=== PATIENT | female | born 1955 | race Caucasian/White ===

== ENCOUNTER → 2017-02-25 | Outpatient (CLI) | payer OTHER | END | disposition home or self-care (01) | LOC: CFH 08:00 | PROVIDERS: ATTEND Obstetrics & Gynecology Gynecology | DX: Z12.31 Encounter for screening mammogram for malignant neoplasm of breast (principal) | CPT/HCPCS: G0202 ==

== ENCOUNTER → 2017-03-21 | Outpatient (CLI) | payer OTHER ==
[~2017-03-21] MED LIST: OMNIPAQUE 350 MG/ML, 100ML BOTTLE ONE; PITA2TAB2 PO
== END | disposition home or self-care (01) ==
LOC: CFH 09:09
PROVIDERS: ATTEND Specialist
DX: N94.89 Other specified conditions associated with female genital organs and menstrual cycle (principal); K75.3 Granulomatous hepatitis, not elsewhere classified; M47.896 Other spondylosis, lumbar region
CPT/HCPCS: 74177; 82565; Q9967

== ENCOUNTER → 2017-03-21 | Outpatient (CLI) | payer OTHER ==
[~2017-03-21] MED LIST changes: -OMNIPAQUE 350 MG/ML, 100ML BOTTLE ONE
[2017-03-21 14:50] LABS: BLOOD UREA NITROGEN 14 mg/dL (7-18)
[2017-03-21 14:53] LABS: ASPARTATE AMINO TRANSFERASE 20 U/L (15-37)
== END | disposition home or self-care (01) ==
LOC: STAR 13:37
PROVIDERS: ATTEND Specialist
DX: Z01.818 Encounter for other preprocedural examination (principal); R79.1 Abnormal coagulation profile
CPT/HCPCS: 36415; 71020; 80053; 85025; 85610; 85730; 86304; 93005

== ENCOUNTER 2017-04-04 08:48 | Day surgery (SDC) | payer OTHER ==
[~2017-04-04] VITALS: Ht 172.7 cm; Wt 63.6 kg
[~2017-04-04 08:48] MED LIST changes: +BUPIVACAINE/PF 0.25% ONE; +EPINEPHRINE 1 MG/ML, 1ML ONE
[2017-04-04] MEDS ORDERED: LACTATED RINGERS 1,000 ML IV SCH (09:20)
[2017-04-04 09:22] VITALS: BP 163/93
[2017-04-04] MEDS ORDERED: NEOSTIGMINE 1 MG/ML, 10ML ONE ×2 (10:40)
[2017-04-04] MEDS ORDERED: PROPOFOL 10 MG/ML, 20ML ONE (10:40)
[2017-04-04] MEDS ORDERED: GLYCOPYRROLATE 0.2MG/1ML ONE (10:40)
[2017-04-04] MEDS ORDERED: ROCURONIUM 10 MG/ML ONE (10:40)
[2017-04-04] MEDS ORDERED: CEFOTETAN 2 GM ONE (10:40)
[2017-04-04] MEDS ORDERED: ONDANSETRON 2MG/ML, 2ML ONE (10:40)
[2017-04-04] MEDS ORDERED: KETOROLAC 30 MG/1 ML ONE ×2 (10:40→16:52)
[2017-04-04] MEDS ORDERED: FENTANYL PF 250 MCG/5ML ONE (13:35)
[2017-04-04] MEDS ORDERED: MIDAZOLAM 1 MG/ML, 2ML ONE (13:35)
[2017-04-04] MEDS ORDERED: ACETAMINOPHEN 325 MG TABLET PO PRN (15:00)
[2017-04-04] MEDS ORDERED: MEPERIDINE/PF 25MG/0.5ML IVPush PRN (15:00)
[2017-04-04] MEDS ORDERED: MIDAZOLAM 1 MG/ML, 2ML IV PRN (15:00)
[2017-04-04] MEDS ORDERED: HYDROmorphone 1 MG/ML, 1ML IV PRN (15:00)
[2017-04-04] MEDS ORDERED: EPHEDRINE 50 MG/ML, 1ML IVPush PRN (15:00)
[2017-04-04] MEDS ORDERED: HYDROcodone/APAP 7.5-325MG/15ML UDC PO PRN (15:00)
[2017-04-04] MEDS ORDERED: LABETALOL 5MG/ML, 20ML IV PRN (15:00)
[2017-04-04] MEDS ORDERED: ONDANSETRON 2MG/ML, 2ML IVPush PRN (15:00)
[2017-04-04] MEDS ORDERED: PROMETHAZINE 25 MG/ML, 1ML IV PRN (15:00)
[2017-04-04] MEDS ORDERED: hydrALAzine 20 MG/ML, 1ML IV PRN (15:00)
[2017-04-04] MEDS ORDERED: OXYcodone 5 MG/5 ML ORAL.SOL UDC PO PRN (15:00)
[2017-04-04] MEDS ORDERED: FENTANYL PF 100 MCG/2ML IV PRN (15:00)
[2017-04-04] MEDS ORDERED: SUGAMMADEX 200 MG/2 ML IVPush ONE (16:21)
[2017-04-04] MEDS ORDERED: HYDROmorphone 1 MG/ML, 1ML ONE (16:52)
[2017-04-04] MEDS ORDERED: ACETAMINOPHEN 650 MG/20.3 ML UDC ONE (16:52)
[2017-04-04] MEDS ORDERED: OXYcodone 5 MG/5 ML ORAL.SOL UDC ONE (16:52)
== END 2017-04-04 20:15 | disposition home or self-care (01) ==
LOC: OUT 08:48
PROVIDERS: ATTEND Specialist
PROC: 0UTC7ZZ Resection of Cervix, Via Natural or Artificial Opening (ICD-10-PCS; 2017-04-04)
PROC: 0UT9FZZ Resection of Uterus, Via Natural or Artificial Opening With Percutaneous Endoscopic Assistance (ICD-10-PCS; principal; 2017-04-04 10:30)
DX: D25.9 Leiomyoma of uterus, unspecified (principal); N83.202 Unspecified ovarian cyst, left side; N83.512 Torsion of left ovary and ovarian pedicle; E78.5 Hyperlipidemia, unspecified
CPT/HCPCS: 36415; 58552; 86850; 86900; 86923; 88305; 88307; 88331; J0171; J1885; J2250; J2405; J2704; J2710; J3010; J3490; J7120; S2900; S0074

== ENCOUNTER → 2020-02-28 | Outpatient (CLI) | payer MEDICARE ==
[~2020-02-28] MED LIST changes: -BUPIVACAINE/PF 0.25% ONE; -EPINEPHRINE 1 MG/ML, 1ML ONE
== END | disposition home or self-care (01) ==
LOC: CFH 09:31
PROVIDERS: ATTEND Internal Medicine
DX: Z12.31 Encounter for screening mammogram for malignant neoplasm of breast (principal)
CPT/HCPCS: 77063; 77067